=== PATIENT | female | born 1970 | race Caucasian/White ===

== ENCOUNTER 2021-08-31 06:28 | Day surgery (SDC) | payer MEDICAID, SELFPAY ==
[~2021-08-31] VITALS: Ht 170.2 cm; Wt 77.1 kg
[2021-08-31] MEDS ORDERED: MIDAZOLAM HCL 5 MG/5 ML VIAL ONE (08:02)
[2021-08-31] MEDS ORDERED: MEPERIDINE 100 MG INJ. 100 MG/ML VIAL ONE (08:02)
[2021-08-31 17:57] VITALS: BP_SYST 118
== END 2021-08-31 09:35 | disposition home or self-care (01) ==
LOC: SDS 06:28 → SMU 06:29 → SDS 09:35
PROVIDERS: ATTEND Internal Medicine Gastroenterology
DX: R19.5 Other fecal abnormalities (principal); K64.9 Unspecified hemorrhoids; Z20.822 Contact with and (suspected) exposure to COVID-19; Z79.899 Other long term (current) drug therapy
CPT/HCPCS: 36415; 45378; 87426; 99152; 99153; G0378; J2175; J2250; U0003